=== PATIENT | female | born 1970 | race Two or more races ===

== ENCOUNTER 2022-05-28 21:52 | Emergency (ER) | payer OTHER, MEDICAID ==
[~2022-05-28] VITALS: Ht 165.1 cm; Wt 85.7 kg
[2022-05-28 21:55] VITALS: BP 113/44
== END 2022-05-29 00:17 | disposition left against medical advice (07) ==
LOC: ER 21:52
DX: L02.415 Cutaneous abscess of right lower limb (principal); Z53.21 Procedure and treatment not carried out due to patient leaving prior to being seen by health care provider